=== PATIENT | male | born 1945 | race Two or more races ===

== ENCOUNTER 2019-11-18 04:36 | Day surgery (SDC) | payer OTHER ==
[2019-11-12 13:43] VITALS: BMI 23.8
[2019-11-18] MEDS ORDERED: ROPIVACAINE HCL 0.5% 30ML VIAL ONE (07:56)
[2019-11-18] MEDS ORDERED: DEXAMETHASONE SOD PHOSPHATE/PF 10 MG/ML SDV ONE (07:56)
[2019-11-18] MEDS ORDERED: MIDAZOLAM HCL 2 MG/2 ML SINGLE DOSE VIAL ONE ×2 (09:50)
[2019-11-18] MEDS ORDERED: LIDOCAINE HCL 1%, 10 MG/ML (20ML VIAL) ONE (10:29)
--- NOTE | 2019-11-18 10:38 | HP ---
History & Physical Update - History History: No Change - Physical Physical: No Change - Assessment Assessment: No Change - Plan Plan: No Change (For open repair right inguinal hernia w/mesh; r/b/t/a's d/w the patient pre-op in the office and again today; informed consent obtained.)
[2019-11-18] MEDS ORDERED: ROCURONIUM BROMIDE 50 MG/5 ML SYRINGE ONE ×2 (10:54→11:51)
[2019-11-18] MEDS ORDERED: PROPOFOL 20 ML ONE (10:54)
[2019-11-18] MEDS ORDERED: ceFAZolin SODIUM 1 GM VIAL IVPB ONE (11:10)
[2019-11-18] MEDS ORDERED: DEXAMETHASONE SOD PHOSPHATE 4 MG/1 ML VIAL ONE (11:12)
[2019-11-18] MEDS ORDERED: LIDOCAINE HCL/PF 2% SDV 5ML VIAL ONE (11:12)
[2019-11-18] MEDS ORDERED: ceFAZolin SODIUM 1 GM VIAL ONE (11:12)
[2019-11-18] MEDS ORDERED: ePHEDrine SULFATE 50 MG/1 ML AMPULE ONE (11:52)
[2019-11-18] MEDS ORDERED: NEOSTIGMINE METHYLSULFATE 0.5 MG/ML - 10 ML MDV ONE (12:17)
--- NOTE | 2019-11-18 12:22 | OP ---
Operative Note - Note: Operative Date: 11/18/19 Pre-Operative Diagnosis: right inguinal hernia Operation: repair right inguinal hernia w/mesh Findings: indirect RIH/lipoma of the cord/weak floor Post-Operative Diagnosis: Same as Pre-op Surgeon: Eamon Clay Fountain Pen Nibs Inspector: Javon Bowman Anesthesiologist/TELEPHONE BETTING CLERK: Skylar Rasmussen MD Anesthesia: General (TAP block) Specimens Removed: sac and lipoma Estimated Blood Loss (mls): 10
[2019-11-18] MEDS ORDERED: LACTATED RINGERS SOLUTION 1,000 ML IV SCH (12:45)
[2019-11-18] MEDS ORDERED: ONDANSETRON 4 MG/2 ML VIAL IVPUSH PRN (12:45)
[2019-11-18] MEDS ORDERED: oxyCODONE HCL 5 MG TABLET PO ONE (14:03)
[2019-11-18] MEDS ORDERED: oxyCODONE HCL 5 MG TABLET ONE (14:07)
--- NOTE | 2019-11-18 14:50 | SURG ---
Surgery Salary Manager Note Salary Manager: Javon Bowman PA-C Date of Service: 11/18/19 Diagnosis: Right inguinal hernia Procedure: Right open inguinal hernia repair with mesh I was present for the entirety of the operative procedure. For further detail, please refer to operative report. Visit type - Case Type Case Type: Scheduled - Emergency Emergency Visit: No - New patient This patient is new to me today: No - Critical Care Critical Care patient: No
[2019-11-18 15:40] VITALS: BP 125/80; PULSE 88; TEMP 97.8
--- NOTE | 2019-11-19 16:07 | PATH ---
Surgical Pathology Report Patient Name: ROCCO CAAL [facility]. Rec. #: [id number] /Age/Gender: 1945 (Age: 73) / M Account: [id number] Location: [facility] SURGICAL Taken: 11/18/2019 Received: 11/18/2019 Reported: 11/19/2019 Physicians: Eamon Clay MD Specimen(s) Received A: HERNIA SAC B: LIPOMA Clinical History Unilateral inguinal hernia Final Diagnosis A. HERNIA SAC, RIGHT, OPEN INGUINAL HERNIA REPAIR: HERNIA SAC. B. "LIPOMA", RIGHT, OPEN RIGHT INGUINAL HERNIA REPAIR: MATURE FIBROADIPOSE TISSUE CONSISTENT WITH LIPOMA. Electronically Signed Radha Kovacs M.D. Gross Description A. Received in formalin labeled "hernia sac," is a 2.1 x 0.6 x 0.2 cm bustillo pink portion of fibromembranous tissue with attached fat, consistent with a hernia sac. The specimen is submitted in toto in one cassette. B. Received in formalin labeled "lipoma," is a 4.5 x 3.8 x 1.2 cm aggregate of yellow, lobulated adipose tissue. Card Services Specialist sections are submitted in one cassette. /11/18/2019 saudi11/18/2019
--- NOTE | 2019-11-24 18:20 | OP ---
DATE OF OPERATION: 11/18/2019 PREOPERATIVE DIAGNOSIS: Right inguinal hernia. POSTOPERATIVE DIAGNOSIS: Right inguinal hernia. PROCEDURE: Repair of right inguinal hernia with mesh. SURGEON: Eamon Clay MD JEWELRY FINISHER: Javon Bowman PA-C ANESTHESIA: General with TAP block. FINDINGS: There was an indirect right inguinal hernia, a lipoma of the cord, and a weak attenuated floor. The rest of the findings were unremarkable. PROCEDURE: The patient was placed on the operating table in the supine position and, after the induction of general anesthesia, the patient's abdomen was prepped with ChloraPrep and draped in sterile fashion. A timeout was taken and a right groin crease incision was mapped out. The area was infiltrated with 1% Xylocaine and 0.5% Marcaine in equal concentration. Incision was made with a scalpel and taken down through skin and subcutaneous tissue and Shahzad's fascia to the external oblique fascia, which was divided proximally and distally in the direction of its fibers. The cord structures and nerve were elevated to the level of the pubic tubercle and a [place] drain placed around them for retraction and identification purposes. An indirect hernia sac was identified within the substance of the cord and traced up to the internal ring. The sac was empty, and high ligation was carried out with 2-0 Vicryl suture. Redundant sac was excised and sent for pathological examination. Similarly, a lipoma of the cord with its origin at the internal ring was clamped, excised, and the pedicle ligated with 2-0 Vicryl suture. Next, the floor of the inguinal canal was reinforced with a custom-fashioned piece of Marlex mesh. The mesh was anchored to the pubic tubercle with 2-0 Prolene and affixed to the shelving edge and conjoint tendon respectively with continuous 2- 0 Prolene. A keyhole was created for the cord structures and the tails of the mesh brought above the level of the internal ring and anchored there with interrupted 2-0 Prolene. Hemostasis was checked for and noted to be good, and then the wound was copiously irrigated with sterile saline. The cord structures and nerve were returned to their normal anatomic position and hemostasis verified again. The external oblique fascia was closed using continuous 2-0 Vicryl, recreating the external ring. Shahzad's fascia was reapproximated with interrupted 2-0 Vicryl, the deep dermis with interrupted 3-0 Vicryl, and the skin edges with 4-0 Monocryl in a subcuticular continuous fashion. Steri-Strips and dry sterile dressings were placed and the procedure terminated at this point and the patient aroused from general anesthesia and transferred to the post-anesthesia care unit in stable condition, awake and alert. Estimated blood loss 10 mL. Replacement: Crystalloid. Drains: None. Specimen: Hernia sac and lipoma to Pathology. I, Eamon Clay, was physically present in the operating room from the time the patient was placed on the operating table until he was transferred to the post-anesthesia care unit in [place]. MD KELLEE Saldana/[id number] MTDD
== END 2019-11-18 15:35 | disposition home or self-care (01) ==
LOC: JASU-SURG 04:36
PROVIDERS: ATTEND Surgery
PROC: 0YU50JZ Supplement Right Inguinal Region with Synthetic Substitute, Open Approach (ICD-10-PCS; principal; 2019-11-18 11:00)
DX: K40.90 Unilateral inguinal hernia, without obstruction or gangrene, not specified as recurrent (principal)
CPT/HCPCS: 88302-TC; 88304-TC; 94760